=== PATIENT | female | born 1980 | race Caucasian/White ===

== ENCOUNTER 2017-09-12 18:49 | Emergency (ER) | payer OTHER, MEDICAID, SELFPAY ==
[2017-09-12 19:02] VITALS: BP 124/85; PULSE 83; RESP 20; TEMP 36.8; O2SAT 100; BMI 29.5
--- NOTE | 2017-09-12 20:06 | ED.DENTAL ---
HPI - Dental/Oral <Deepika Guadarrama PA-C - Last Filed: 09/12/17 22:13> General Chief complaint: Dental/Oral Stated complaint: POSSIBLE INFECTION IN MOUTH,NAUSIA,DIZZY Time Seen by Provider: 09/12/17 20:06 Source: patient Mode of arrival: ambulatory Limitations: no limitations History of Present Illness HPI Narrative: This generally healthy 36-year-old female complains of worsening dental pain. She states that she saw a dentist about 6 weeks ago and was told that she had an infection around her tooth. She states that a deep cleaning was planned to treat this but never scheduled. She was not started on antibiotics. On Wednesday she developed some sore throat, congestion and mild cough. She states that she has not had any fever or dyspnea and felt this was mild, but for the last 2 days she has had worsening tooth pain. She feels like pain radiates from this tooth socket up into her maxillary area and ear. She states the tooth feels loose. She has difficulty eating due to the pain. She is not having any drainage from the tooth. Again no new fever or other symptoms with this. Initially she thought might be a sinus infection due to noticing some malodorous PND but that resolved. She denies any other new complaints on systems review. States that she has miserable pain, has taken 1000 mg of ibuprofen twice today along with Tylenol. Ibuprofen helps for some time. Tylenol not helping. She has not tried topical or other pain medication. Records states allergy to codeine, but she reports that she took [place] with previous fibroid removal and no allergy or side effect Related Data Previous Rx's Medication Instructions Recorded mupirocin 2 % topical ointment 1 applictn TOP BID #22 gram 08/25/17 amoxicillin-pot clavulanate 1 tab PO Q12H #20 tab 09/12/17 [Augmentin] Allergies Allergy/AdvReac Type Severity Reaction Status Date / Time codeine [CODEINE] Allergy Unknown Verified 09/12/17 19:09 Exam <Deepika Guadarrama PA-C - Last Filed: 09/12/17 22:13> Narrative Exam Narrative: GENERAL APPEARANCE: Patient sitting comfortably, in no distress. HEAD: Localized right maxillary tenderness, none elsewhere EYES: PERRL, EOMI. EARS: Normal auditory canals, TMS intact with normal light reflexes. ORAL CAVITY: Normal oropharynx. THROAT: Right lateral incisor is discolored with erythema, tenderness and some edema around the anterior gum line. None posteriorly. No clear fluctuance. No drainage NECK/THYROID: Neck supple, full range of motion, no cervical lymphadenopathy. LUNGS: Clear to auscultation bilaterally, no cough on exam. HEART: RRR without murmur, nl S1, S2, no S3 or S4. Initial Vital Signs Initial Vital Signs: Vital Signs Temperature 98.2 F 09/12/17 19:02 Pulse Rate 83 09/12/17 19:02 Respiratory Rate 20 09/12/17 19:02 Blood Pressure 124/85 H 09/12/17 19:02 Pulse Oximetry 100 09/12/17 19:02 <Merary Rodríguez DO - Last Filed: 09/13/17 01:52> Initial Vital Signs Initial Vital Signs: Vital Signs Temperature 98.2 F 09/12/17 19:02 Pulse Rate 83 09/12/17 19:02 Respiratory Rate 20 09/12/17 19:02 Blood Pressure 124/85 H 09/12/17 19:02 Pulse Oximetry 100 09/12/17 19:02 Course <Deepika Guadarrama PA-C - Last Filed: 09/12/17 22:13> Orders Ordered: Discontinued Medications Hydrocodone Bitart/Acetaminophen (Vicodin Prepack) 1 bottle MISC SEEINSTR ONE Stop: 09/12/17 20:40 Last Admin: 09/12/17 20:51 Dose: 1 bottle Amoxicillin/Clavulanate Potassium (Augmentin 875-125 Mg) 1 tab PO NOW ONE Stop: 09/12/17 20:40 Last Admin: 09/12/17 20:51 Dose: 1 tab Vital Signs - 8 hr 09/12/17 19:02 09/12/17 21:13 Temperature 98.2 F 98.4 F Pulse Rate 83 82 Respiratory Rate 20 18 Blood Pressure 124/85 H 122/80 H Pulse Oximetry 100 100 <Merary Rodríguez DO - Last Filed: 09/13/17 01:52> Orders Ordered: Discontinued Medications Hydrocodone Bitart/Acetaminophen (Vicodin Prepack) 1 bottle MISC SEEINSTR ONE Stop: 09/12/17 20:40 Last Admin: 09/12/17 20:51 Dose: 1 bottle Amoxicillin/Clavulanate Potassium (Augmentin 875-125 Mg) 1 tab PO NOW ONE Stop: 09/12/17 20:40 Last Admin: 09/12/17 20:51 Dose: 1 tab Vital Signs - 8 hr 09/12/17 19:02 09/12/17 21:13 Temperature 98.2 F 98.4 F Pulse Rate 83 82 Respiratory Rate 20 18 Blood Pressure 124/85 H 122/80 H Pulse Oximetry 100 100 Discharge Plan Departure Patient Disposition: Home, Self-Care Clinical Impression: Infected dental caries Discharge Date/Time: 09/12/17 21:14 Interventions: ED Discharge Assessment Last Done: 09/12/17 21:13 Instructions: DI for Dental Pain Activity Restrictions/Additional Instructions: Get your antibiotic 1st thing tomorrow morning from the pharmacy and take the 2nd dose. Continue ibuprofen 800 mg every 8 hr for pain. You can use the prescription hydrocodone/acetaminophen that we gave you tonight and in the morning if needed for pain, then change back to Tylenol as needed. Call your dentist 1st thing in the morning and let them know you were seen in the ED and need to follow up in the next couple of days. It also appears that you could have a sinus infection in addition to this painful tooth on your exam today, and typically this antibiotic will help with both problems Prescriptions: New amoxicillin-pot clavulanate [Augmentin] 875-125 mg tablet 1 tab PO Q12H Qty: 20 RF: 0 No Action mupirocin 2 % ointment 1 applictn TOP BID Qty: 22 RF: 0 Referrals: [facility] [Other] Tricia Peres ARNP [Primary Care Provider] - <Merary Rodríguez DO - Last Filed: 09/13/17 01:52> Cosign ED Attending Ama[place] Attestation: I was immediately available in the department for consultation. Documentation has been reviewed. I agree with assessment and plan.
[2017-09-12] MEDS: HYDROCODONE/ACET 5/325 PREPACK 1 BOTTLE MISC (20:51)
[2017-09-12] MEDS: AMOXICILLIN/CLAV 875/125 MG 1 TAB PO (20:51)
[2017-09-12 21:13] VITALS: BP 122/80; PULSE 82; RESP 18; TEMP 36.9; O2SAT 100
--- NOTE | 2017-09-12 21:21 | PC.NURSE ---
Pt given norco pre pack. Pt asked if medication had codeine, informed pt it was hydrocodone. Pt accepted medication. Bree MEDEL also verified medication with pt.
== END 2017-09-12 21:14 | disposition home or self-care (01) ==
PROVIDERS: Emergency Provider Internal Medicine; Family Provider Internal Medicine; PCP Internal Medicine
DX: K02.9 Dental caries, unspecified (principal)
CPT/HCPCS: 99282; 99283

== ENCOUNTER 2020-08-19 20:04 | Observation (INO) | payer OTHER, MEDICAID, SELFPAY ==
[2020-08-19 20:19] VITALS: BP 121/64; PULSE 84; RESP 22; TEMP 37.1; O2SAT 98
[2020-08-20] VITALS (9 sets, daily range): BP systolic 125–129; BP diastolic 70–81; PULSE 94–97; RESP 18–20; TEMP 36.2–36.4; O2SAT 95–98; BMI 29.9
--- NOTE | 2020-08-20 00:52 | DI.CT.S_ITS ---
PROCEDURE: CT SOFT TISSUE NECK W CON INDICATIONS: abscess left side of neck TECHNIQUE: After the administration of intravenous contrast, 3.0 mm axial sections acquired from the sella to the aortic arch. Additional oblique axial 3.0 mm sections acquired through the pharynx. 3 mm thick coronal and sagittal reformats were generated. For radiation dose reduction, the following was used: automated exposure control. COMPARISON: None. FINDINGS: Image quality: Excellent. Lymph nodes: Prominent left-sided adenopathy is present including a 1.6 cm level 1 B lymph node. Vessels: Visualized vasculature appears patent. Neck spaces: The oropharynx, nasopharynx, and pharynx demonstrate no mucosal lesions. The vocal cords, false vocal cords, pyriform sinuses, epiglottis, vallecula, and tongue base all appear normal. Extramucosal spaces appear unremarkable. Glands: There is mild asymmetric prominence of the left submandibular gland. Left parotid gland demonstrates minimal periparotid stranding along the inferior tail portion. Thyroid gland is unremarkable. Miscellaneous: Visualized brain and orbits appear normal. Lung apices appear clear. There is prominent stranding within the left neck most focused inferior to the mandible. No focal fluid collection is identified. Stranding also does extend to the inferior aspect of the left parotid gland. Bones: No suspicious bony lesions. Visualized sinuses and mastoids appear unremarkable. IMPRESSION: 1. Inferior left neck subcutaneous fat stranding with adenopathy suggestive of infection or inflammation. No focal fluid collection such as abscess is clearly identified. There is asymmetric prominence of the left submandibular gland suggestive of possible siloadenitis. The above findings are concordant with preliminary report. Dictated by: Lola Us M.D. on 08/20/2020 at 10:42 Approved by: Lola Us M.D. on 08/20/2020 at 10:49
--- NOTE | 2020-08-20 00:52 | ED.DENTAL ---
HPI - Dental/Oral General Chief complaint: Dental/Oral Stated complaint: SWELLING LEFT SIDE OF FACE THROAT Time Seen by Provider: 08/20/20 00:41 Source: patient Mode of arrival: Ambulatory Limitations: no limitations History of Present Illness HPI Narrative: Patient is a 39-year-old female who had cavity filled 2 days ago since she has had increased pain and swelling of her left lower jaw. She has taken Tylenol and ibuprofen but feels like the swelling has gotten significantly worse. It hurts to swallow but she is still able to swallow. She has not had any fever or chills. Nothing like this has happened to her before. Related Data Home Medications Medication Instructions Recorded Confirmed levonorgestrel 20 mcg/24 hours (6 INTRAUTERINE 02/07/20 03/06/20 yrs) 52 mg intrauterine device Allergies Allergy/AdvReac Type Severity Reaction Status Date / Time codeine [CODEINE] Allergy Unknown Verified 03/06/20 16:28 Review of Systems Review of Systems Narrative: GENERAL: Denies chills, fatigue, malaise, fever, sweats, travel HEENT: HPI RESPIRATORY: Denies dyspnea, cough, wheezing, hemoptysis, sputum. CARDIOVASCULAR: Denies chest pain, palpitations, orthopnea, edema GASTROINTESTINAL: Denies nausea, vomiting, abdominal pain, diarrhea, constipation, melena. : Denies dysuria, frequency, incontinence, hematuria, urinary retention, flank pain. MUSCULOSKELETAL: Denies weakness, joint pain, or bony pain SKIN: No rash, no erythema, no pruritus NEUROLOGIC: Denies weakness, dizziness, headache, numbness, change in speech, confusion PSYCHIATRIC: No concerning psychosocial issues. 12 point review of systems is negative except for those stated above and HPI Patient History Medical History (Updated 08/20/20 @ 05:28 by Merary Rodríguez DO) Normal exam Return to work evaluation Surgical History (Updated 07/20/17 @ 04:58 by Tate Suresh MD) Status post myomectomy Family History (Updated 06/14/16 @ 00:00 by Conversion Provider) Grandmother Diabetes mellitus Heart disease Essential hypertension High cholesterol Social History marital status: number of children: 3 household members: significant other and children lives independently: Yes caregiver/support person: No housing: other (Manufactured mobile home.) pets and animals: Yes education level: other (Associates degree, almost completed with Bachelors.) 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.) current occupational exposures/hazards: No 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 HEENT: Head atraumatic,EOMI, pupils reactive, face symmetric, no dental abscess Cervical lymphadenopathy on the left submandibular swelling no obvious erythema CARDIOVASCULAR: Regular rate and rhythm without murmurs, rubs or gallops. RESPIRATORY: Breath sounds equal bilaterally, no wheezes rales or rhonchi. ABDOMEN: Soft, nontender. Normoactive bowel sounds all 4 quadrants. No guarding or rebound. EXTREMITIES: Normal range of motion, no clubbing or edema. Neurovascularly intact NEUROLOGICAL: Alert and oriented x4.Normal gait and speech. Cranial nerves II through XII grossly intact. SKIN: Warm, dry, no laceration, no petechiae, no rashes or lesions. Course Orders Ordered: ED Orders 08/20/20 00:52 CT soft tissue neck w con Stat 08/20/20 00:55 Complete Blood Count AUTO DIFF Stat Comprehensive Metabolic Panel Stat Lactate (Lactic Acid) Stat Test Serum,Qual Stat Procalcitonin Stat 08/20/20 01:16 Blood Culture Stat 08/20/20 02:00 COVID19 - ADMIT ([employer] swab/PCR) Stat Acetaminophen (Acetaminophen 325 Mg Tablet) 650 mg PO Q6HR PRN PRN Reason: Fever/Mild Pain (1-3) Dexamethasone (Dexamethasone 10 Mg/Ml Vial) 10 mg IV BID COBY Enoxaparin Sodium (Enoxaparin 40 Mg/0.4 Ml Syringe) 40 mg SUBCUT DAILY COBY Sodium Chloride (Normal Saline 0.9%) 1,000 mls @ 100 mls/hr IV CONT COBY Last Admin: 08/20/20 04:19 Dose: 100 mls/hr Documented by: SHO Ampicillin Sodium/Sulbactam (Sodium 3 gm/ Sodium Chloride) 100 mls @ 100 mls/hr IV Q6H [facility] Ketorolac Tromethamine (Ketorolac 30 Mg/Ml Vial) 30 mg IV Q6HR PRN PRN Reason: Pain, Severe (7-10) Stop: 08/25/20 03:52 Naloxone HCl (Naloxone 0.4 Mg/Ml Vial) 0.2 mg IV Q2MIN PRN PRN Reason: Opiate Reversal Ondansetron HCl (Ondansetron 4 Mg/2 Ml Inj) 4 mg IV Q8HR PRN PRN Reason: Nausea And Vomiting Discontinued Medications Ampicillin Sodium/Sulbactam (Sodium 3 gm/ Sodium Chloride) 100 mls @ 100 mls/hr IV NOW ONE Stop: 08/20/20 00:53 Last Infusion: 08/20/20 02:38 Dose: 0 mls/hr Documented by: Admin: 08/20/20 01:33 Dose: 100 mls/hr Documented by: JANELL Dexamethasone 20 mg/ Sodium (Chloride) 52 mls @ 208 mls/hr IV NOW ONE Stop: 08/20/20 00:53 Last Infusion: 08/20/20 01:33 Dose: 0 mls/hr Documented by: Admin: 08/20/20 01:16 Dose: 208 mls/hr Documented by: JANELL Sodium Chloride (Normal Saline 0.9%) 1,000 mls @ 1,000 mls/hr IV BOLUS ONE Stop: 08/20/20 01:51 Last Infusion: 08/20/20 03:00 Dose: 0 mls/hr Documented by: Admin: 08/20/20 01:17 Dose: 1,000 mls/hr Documented by: JANELL Ampicillin Sodium/Sulbactam (Sodium 3 gm/ Sodium Chloride) 100 mls @ 100 mls/hr IV Q6H [facility] Last Admin: 08/20/20 04:37 Dose: Not Given Documented by: SHO Ketorolac Tromethamine (Ketorolac 30 Mg/Ml Vial) 30 mg IV NOW ONE Stop: 08/20/20 00:53 Last Admin: 08/20/20 01:17 Dose: 30 mg Documented by: JANELL Vital Signs Vital signs: Vital Signs - 8 hr 08/19/20 20:19 Temperature 98.8 F Pulse Rate 84 Respiratory Rate 22 Blood Pressure 121/64 Pulse Oximetry 98 MDM - Dental/Oral Lab Data Attestation: I reviewed the patient's lab results. Result diagrams: 08/20/20 00:55 08/20/20 00:55 Labs: Lab Results 08/20/20 08/20/20 08/20/20 Range/Units 00:55 00:55 00:55 WBC 12.3 H (4.5-11.0) X10^3/uL RBC 4.45 (4.0-5.2) X10^6/uL Hgb 13.5 (12.0-16.0) g/dL Hct 38.9 (36-46) % MCV 87.4 (80-100) fL MCH 30.3 (26-34) PG MCHC 34.7 (30-36) % RDW 13.2 (11.6-14.8) % Plt Count 260 (150-400) X10^3/uL Neut % (Auto) 78.5 H (50-75) % Lymph % (Auto) 13.3 L (25-40) % [place]entry % (Auto) 6.6 (3-14) % Eos % (Auto) 0.9 L (2-4) % Baso % (Auto) 0.7 (0-2) % Neut # (Auto) 9700 H (2427-8252) /uL Lymph # (Auto) 1600 (2227-7315) /uL [place]entry # (Auto) 800 (0-900) /uL Eos # (Auto) 100 (0-450) /uL Baso # (Auto) 100 (0-100) /uL Sodium 140 (137-145) mmol/L Potassium 3.6 (3.4-5.1) mmol/L Chloride 107 (98-107) mmol/L Carbon Dioxide 24 (22-32) mmol/L BUN 6 L (7-17) mg/dL Creatinine 0.65 (0.52-1.04) mg/dL Estimated GFR > 60.0 (>60) mL/min BUN/Creatinine Ratio 9.2 (6-22) Glucose 96 (70-100) mg/dL Lactate 0.6 L (0.7-2.1) mmol/L Calcium 9.2 (8.4-10.2) mg/dL Total Bilirubin 0.9 (0.2-1.3) mg/dL AST 35 (14-36) IU/L ALT 34 (<35) IU/L Alkaline Phosphatase 80 (38-126) U/L Total Protein 8.0 (6.3-8.2) g/dL Albumin 4.3 (3.5-5.0) g/dL Globulin 3.7 (1.7-4.1) g/dL Albumin/Globulin Ratio 1.2 (1.0-2.8) Procalcitonin 0.12 (<0.5) ng/mL Serum , Qual (Negative) SARS-CoV-2 (PCR) (Negative) 08/20/20 08/20/20 Range/Units 00:55 02:00 WBC (4.5-11.0) X10^3/uL RBC (4.0-5.2) X10^6/uL Hgb (12.0-16.0) g/dL Hct (36-46) % MCV (80-100) fL MCH (26-34) PG MCHC (30-36) % RDW (11.6-14.8) % Plt Count (150-400) X10^3/uL Neut % (Auto) (50-75) % Lymph % (Auto) (25-40) % Gentry % (Auto) (3-14) % Eos % (Auto) (2-4) % Baso % (Auto) (0-2) % Neut # (Auto) (2476-0690) /uL Lymph # (Auto) (7654-5367) /uL Gentry # (Auto) (0-900) /uL Eos # (Auto) (0-450) /uL Baso # (Auto) (0-100) /uL Sodium (137-145) mmol/L Potassium (3.4-5.1) mmol/L Chloride (98-107) mmol/L Carbon Dioxide (22-32) mmol/L BUN (7-17) mg/dL Creatinine (0.52-1.04) mg/dL Estimated GFR (>60) mL/min BUN/Creatinine Ratio (6-22) Glucose (70-100) mg/dL Lactate (0.7-2.1) mmol/L Calcium (8.4-10.2) mg/dL Total Bilirubin (0.2-1.3) mg/dL AST (14-36) IU/L ALT (<35) IU/L Alkaline Phosphatase (38-126) U/L Total Protein (6.3-8.2) g/dL Albumin (3.5-5.0) g/dL Globulin (1.7-4.1) g/dL Albumin/Globulin Ratio (1.0-2.8) Procalcitonin (<0.5) ng/mL Serum , Qual Negative (Negative) SARS-CoV-2 (PCR) Negative (Negative) Imaging Data CT soft tissue neck: Radiologist's Impression: Preliminary report: Asymmetrically enlarged left submandibular gland then compared to right with surrounding edema and stranding. No inflammatory change is greatest involving the inferior margin/tail of left parotid gland with edema and thickening of the left platysma. Favor left submandibular gland silloadenitis without obstructing sialolithiasis. No definitive fluid collection. The edema and thickening of the left platysma musculature raising concern for possible coexisting cellulitis. Likely reactive lymph nodes adjacent to the left submandibular gland is outlined above with largest within the left submental region measuring up to 1.5 cm. [facility] Narrative Medical decision making narrative: Patient has significant swelling of left submandibular region. Concern for abscess, Lukasz's angina and deep neck in infection. She has mild leukocytosis as well. CT does not actually show fluid collection but does show sialoadenitis however other is concerning with thickened left platysma for coexisting infection. Patient does feel little bit better after dexamethasone and Unasyn. However still concern for deep neck soft tissue infection with significant submandibular swelling. Recommend patient be monitored for airway protection along with IV antibiotics and IV steroids. 0330-Dr. Singh ENT updated patient's symptoms test results agrees with admission to the hospitalist and recommends calling Dr. Alamo at 8:00 a.m. for official consultation. Alec MCKEON updated patient's symptoms test results and accepts patient to observation Discharge Plan Departure Patient Disposition: Admitted as Observation Clinical Impression: Neck infection, Acute sialoadenitis Admit Date/Time: 08/20/20 03:39 Admit Provider: Candelaria Michael
[2020-08-20 01:09] LABS: Add Manual Diff / Slide Review NO; Basophils Absolute Auto 100 /uL (0-100); Basophils Percent Auto 0.7 % (0-2); Eosinophils Absolute Auto 100 /uL (0-450); Eosinophils Percent Auto 0.9 % (2-4); Hematocrit 38.9 % (36-46); Hemoglobin 13.5 g/dL (12.0-16.0); Lymphocytes Absolute Auto 1600 /uL (1100-4500); Lymphocytes Percent Auto 13.3 % (25-40); Mean Corpuscular HGB Conc 34.7 % (30-36); Mean Corpuscular Hemoglobin 30.3 PG (26-34); Mean Corpuscular Volume 87.4 fL (80-100); Monocytes Absolute Auto 800 /uL (0-900); Monocytes Percent Auto 6.6 % (3-14); Neutrophils Absolute Auto 9700 /uL (1500-7000); Neutrophils Percent Auto 78.5 % (50-75); Platelet Count 260 X10^3/uL (150-400); Red Blood Cell Count 4.45 X10^6/uL (4.0-5.2); Red Cell Distribution Width 13.2 % (11.6-14.8); White Blood Cell Count 12.3 X10^3/uL (4.5-11.0)
[2020-08-20 01:14] LABS: Alanine Aminotransferase 34 IU/L (<35); Albumin 4.3 g/dL (3.5-5.0); Albumin Globulin Ratio 1.2 (1.0-2.8); Alkaline Phosphatase 80 U/L (38-126); Aspartate Aminotransferase 35 IU/L (14-36); BUN Creatinine Ratio 9.2 (6-22); Bilirubin Total 0.9 mg/dL (0.2-1.3); Blood Urea Nitrogen 6 mg/dL (7-17); Calcium 9.2 mg/dL (8.4-10.2); Carbon Dioxide 24 mmol/L (22-32); Chloride 107 mmol/L (98-107); Estimated Glomerular Filt Rate > 60.0 mL/min (>60); Globulin 3.7 g/dL (1.7-4.1); Glucose 96 mg/dL (70-100); HEMOLYSIS 33 (0-50); Potassium 3.6 mmol/L (3.4-5.1); Sodium 140 mmol/L (137-145)
[2020-08-20 01:15] LABS: Lactate (Lactic Acid) 0.6 mmol/L (0.7-2.1)
[2020-08-20] MEDS: dexAMETHasone 20 MG in SODIUM CHLORIDE 0.9% 50 ML 208 ML IV (01:16)
[2020-08-20] MEDS: SODIUM CHLORIDE 0.9% 1,000 ML 1000 ML IV (01:17)
[2020-08-20] MEDS: KETOROLAC 30 MG/ML VIAL IV ×2 (01:17→08:26)
[2020-08-20 01:19] LABS: Pregnancy Test Serum,Qual Negative (Negative)
[2020-08-20 01:30] LABS: Procalcitonin 0.12 ng/mL (<0.5)
[2020-08-20] MEDS: AMPICILLIN/SULBACTAM 3 GM 3 GM in SODIUM CHLORIDE 0.9% 100 ML IV ×3 (01:33→12:49)
[2020-08-20 02:57] LABS: COVID19 - ADMIT (NP swab/PCR) Negative (Negative)
[2020-08-20] MEDS: SODIUM CHLORIDE 0.9% 1,000 ML 100 ML IV (04:19)
--- NOTE | 2020-08-20 05:08 | PC.ADMIT ---
0400 patient admitted to room 210 per wheelchair from ER. Had dental filling done couple days prior and developed swelling in left neck/jaw and uncontrolled pain. Is alert and oriented. Breath sounds CTA with RA sat of 97%; denies SOB. HRR. Denies nausea. BT present and abdomen is soft. Denies dysuria, frequency or urgency. Swelling noted in left jaw/neck and patient states is tender to touch. Rates pain severity as 3/10 with swallowing but states pain is tolerable; describes as burning pain. Independent with mobility and denies any dizziness/lightheadedness and is steady on feet; no falls reported. Bilateral calf SCD's applied. Fall risk score is low. Oriented to bed controls and call light. [email or web address] Admission Note: The patient,Georgia Meyers,39 y/o, was given written information regarding hospital policies, unit procedures and contact persons. Patient's smoking status: Never smoker. Vital Signs - 8 hr 08/20/20 03:49 08/20/20 03:50 08/20/20 04:08 Temperature 97.2 F L Pulse Rate 94 H 97 H Respiratory Rate 18 18 Blood Pressure 129/70 129/81 Pulse Oximetry 97 98 97
[2020-08-20 06:25] LABS: Add Manual Diff / Slide Review NO; Basophils Absolute Auto 100 /uL (0-100); Basophils Percent Auto 0.5 % (0-2); Eosinophils Absolute Auto 0 /uL (0-450); Eosinophils Percent Auto 0.1 % (2-4); Hematocrit 37.9 % (36-46); Hemoglobin 12.5 g/dL (12.0-16.0); Lymphocytes Absolute Auto 800 /uL (1100-4500); Lymphocytes Percent Auto 6.5 % (25-40); Mean Corpuscular Hemoglobin 28.7 PG (26-34); Mean Corpuscular Volume 86.8 fL (80-100); Monocytes Absolute Auto 200 /uL (0-900); Neutrophils Absolute Auto 10700 /uL (1500-7000); Neutrophils Percent Auto 90.9 % (50-75); Platelet Count 244 X10^3/uL (150-400); Red Blood Cell Count 4.36 X10^6/uL (4.0-5.2); White Blood Cell Count 11.8 X10^3/uL (4.5-11.0)
--- NOTE | 2020-08-20 06:31 | PM.HP.1 ---
History of Present Illness History of Present Illness Date Patient Seen: 08/20/20 Time Patient Seen: 06:31 Chief complaint: SWELLING LEFT SIDE OF FACE THROAT Narrative: Patient is a 39-year-old female Georgia Meyers who had cavity filled 4 days ago since that time she has had increased pain and swelling of her left lower jaw. She has taken Tylenol and ibuprofen regularly but feels like the swelling and pain has gotten significantly worse. It hurts to swallow but she is still able to swallow, she denies difficulty breathing. She has been unable to eat solid food since Wednesday. She has not had any fever, chills, nausea, or vomiting. Nothing like this has happened to her before. She has no history stones or blockage. She denies chronic joint pain, dry eyes or mouth, weight loss, foul-smelling breath, changes to saliva secretions or any drainage. Patient has had no recent exposure to contrast dye or new medication prior to tonight. Patient is a healthy 39-year-old female with no other significant medical history, surgeries or medications. Upon admit patient's vital signs were stable, patient's labs were unremarkable with the exceptions of elevated white count 12.3, nuet#900, and lactate 0.6. Patient has significant swelling of left submandibular region. She has mild leukocytosis as well. CT does not actually show fluid collection but does show sialoadenitis however other is concerning with thickened left platysma for coexisting infection. Patient be admitted for Acute Left Sialadenitis to monitor for airway protection along with IV antibiotics and IV steroids. ED Consult-Dr. Singh ENT agrees with admission to the hospitalist and recommends calling Dr. Alamo at 8:00 a.m. for official consultation. Patient History Medical History Normal exam Return to work evaluation Surgical History Status post myomectomy Family & Social History Family History Grandmother Diabetes mellitus Heart disease Essential hypertension High cholesterol Social History: household members significant other,children Prior Living Arrangements Mobile home lives independently Yes caregiver/support person No Safety & Behavioral: Feels Safe in Current Yes Environment Been Physically Hurt or No Threatened By a Person Suicidal Ideation Description None Suicide Plan Description No Plan Tobacco & Substance use: Smoking Status Never smoker alcohol intake never Substance Use Type does not use Meds Home Medications and Allergies Home Medications Medication Instructions Recorded Confirmed Type levonorgestrel 20 mcg/24 hours (6 INTRAUTERINE 02/07/20 03/06/20 History yrs) 52 mg intrauterine device Allergies Allergy/AdvReac Type Severity Reaction Status Date / Time codeine [CODEINE] Allergy Unknown Verified 03/06/20 16:28 Review of Systems Review of Systems ROS: Yes All systems reviewed with the patient and are negative except as otherwise documented ENT Ears, Nose, Mouth, and Throat: Yes facial pain, Yes mouth pain and Yes odynophagia Comments: neck swelling Gastrointestinal Gastrointestinal: Reports odynophagia Exam Vital Signs (past 8 hours): - 08/20/20 03:49 08/20/20 03:50 08/20/20 04:08 Temperature 97.2 F L Pulse Rate 94 H 97 H Respiratory Rate 18 18 Blood Pressure 129/70 129/81 Pulse Oximetry 97 98 97 Oxygen Delivery Method Room Air Oxygen Flow Rate 0 Narrative Exam Narrative: General: Patient is a well-developed, well-nourished in no distress at this time. HEENT: Normocephalic, atraumatic, extraocular muscles intact, oral pharynx is clear and mucous membranes are moist. Neck: Noted moderate left submandibular inflammation without erythema. Negative for JVD Chest: Normal AP diameter and contour without kyphoscoliosis, no nasal flaring, retractions, or tachypneic labored Lungs: Auscultation of all lung alba are clear without adventitious sounds, wheezes, rhonchi, or rales. Cardio: S1 & S2 with regular rate and rhythm without murmur, rubs, or gallops, no carotid bruit, no cardiac pulsations present. Abdomen: Soft nontender, negative for organomegaly, or masses. Bowel sounds are present in all 4 quadrants without guarding or rebound, no CVA tenderness. Musculoskeletal: Muscle strength and tone are equal within normal limits, no deformity, crepitus, effusions, cyanosis, clubbing or edema present. Full range of motion intact radial and pedal pulses are normal. Skin: Warm dry and intact without rashes, ulcerations or petechiae. Neuro: Alert and orientated x3, strength is +5/5 in all extremities, sensation to touch intact, no gross deficits noted of cranial nerves. Psych: Patient has a well-kept appearance, appropriate affect, mental status attitude thought context and judgment are appropriate for age. Objective Labs Result Diagrams: 08/20/20 00:55 08/20/20 00:55 Labs: Laboratory Results - last 24 hr 08/20/20 08/20/20 08/20/20 00:55 00:55 00:55 WBC 12.3 H RBC 4.45 Hgb 13.5 Hct 38.9 MCV 87.4 MCH 30.3 MCHC 34.7 RDW 13.2 Plt Count 260 Neut % (Auto) 78.5 H Lymph % (Auto) 13.3 L [place] % (Auto) 6.6 Eos % (Auto) 0.9 L Baso % (Auto) 0.7 Neut # (Auto) 9700 H Lymph # (Auto) 1600 [place] # (Auto) 800 Eos # (Auto) 100 Baso # (Auto) 100 Sodium 140 Potassium 3.6 Chloride 107 Carbon Dioxide 24 BUN 6 L Creatinine 0.65 Estimated GFR > 60.0 BUN/Creatinine Ratio 9.2 Glucose 96 Lactate 0.6 L Calcium 9.2 Total Bilirubin 0.9 AST 35 ALT 34 Alkaline Phosphatase 80 Total Protein 8.0 Albumin 4.3 Globulin 3.7 Albumin/Globulin Ratio 1.2 Procalcitonin 0.12 Serum , Qual SARS-CoV-2 (PCR) 08/20/20 08/20/20 00:55 02:00 WBC RBC Hgb Hct MCV MCH MCHC RDW Plt Count Neut % (Auto) Lymph % (Auto) [place] % (Auto) Eos % (Auto) Baso % (Auto) Neut # (Auto) Lymph # (Auto) [place] # (Auto) Eos # (Auto) Baso # (Auto) Sodium Potassium Chloride Carbon Dioxide BUN Creatinine Estimated GFR BUN/Creatinine Ratio Glucose Lactate Calcium Total Bilirubin AST ALT Alkaline Phosphatase Total Protein Albumin Globulin Albumin/Globulin Ratio Procalcitonin Serum , Qual Negative SARS-CoV-2 (PCR) Negative Assessment & Plan Assessment & Plan narrative: 1.Acute Sialadenitis Left (submandibular gland), acute, present on admission Upon admit patient's vital signs were stable, patient's labs were unremarkable with the exception white count 12.3, nuet#900, and lactate 0.6. Patient has significant swelling of left submandibular region. She has mild leukocytosis as well. CT does not actually show fluid collection but does show sialoadenitis however other is concerning with thickened left platysma for coexisting infection. Most likely secondary bacterial infection to dental procedure. -Neck CT:Asymmetrically enlarged left submandibular gland then compared to right with surrounding edema and stranding. No inflammatory change is greatest involving the inferior margin/tail of left parotid gland with edema and thickening of the left platysma. Favor left submandibular gland silloadenitis without obstructing sialolithiasis. No definitive fluid collection. The edema and thickening of the left platysma musculature raising concern for possible coexisting cellulitis. Likely reactive lymph nodes adjacent to the left submandibular gland is outlined above with largest within the left submental region measuring up to 1.5 cm. -Rule out: abscess, Lukasz's angina and deep neck in infection. Monitor airway ED Consult-Dr. Singh ENT agrees with admission to the hospitalist and recommends calling Dr. Alamo at 8:00 a.m. for official consultation. -Consult from Dr. Alamo today. -Unasyn 3 g q.6 hours and dexamethasone 10 mg b.i.d. -vital signs q.4 hours, intake and output monitored Q shift, weight measure daily, diet:clear liquids, IV NS 100cc/hr -warm compresses to area, sucking on hard candies to promote drainage. Code status: Full code Surrogate decision maker: Phyllis Quinonez-best friend COVID PCR: Negative VTE/DVT prophylaxis: Lovenox 40 mg and SCDs Scores GCS Niko coma scale eye opening: Spontaneous [place] coma scale verbal response: Orientated [place] coma scale motor response: Obey commands Niko coma scale total score: 15 SOFA PaO2/FIO2: >=400 mmHg Platelets: >= 150 Bilirubin: < 1.2 mg/dL Hypotension: MAP >= 70 mmHg [place] Coma Scale: 15 Renal: < 1.2 mg/dL SOFA Score: 0 Quality VTE Deep Vein Thrombosis/Pulmonary Embolism Present on Admission: No
[2020-08-20] MEDS: ENOXAPARIN 40 MG/0.4 ML SYRINGE SUBCUT (08:26)
[2020-08-20] MEDS: DEXAMETHASONE 10 MG/ML VIAL IV (08:26)
--- NOTE | 2020-08-20 14:25 | PC.NURSE ---
Discharge education given to pt, discussed- medications, worsening symptoms, f/u appts, s/s of stroke, and reasons to seek medical attention. All questions answered. IV removed. Pt dressed and packed independently. To call when her laundry route driver arrives, to be escorted via w/c.
--- NOTE | 2020-08-20 15:44 | CM.DANOTE ---
DCP ASSESSMENT: Patient is a 39 year-old female admitted to the hospital for swelling of left side of face and throat. PCP unknown. Primary payer is [place] and [employer]. PT ESC[employer] Student met with patient at bedside she was alert and oriented. Educated patient on role of social work and discharge planning. She lives with significant other and two children 5 and 16 years-old. She is independent with all ADL?s. Patient anticipates D/C home when medically stable with friend Phyllis Quinonez to provide transportation. PLAN: Anticipate D/C when medically stable. CM Team to continue to follow. QUIRINO Carvalho MSW Student Discharge Planning/Care Management CM Discharge Assessment Start: 08/20/20 09:59 Freq: Status: Discharge Protocol: Document 08/20/20 09:59 AL (Rec: 08/20/20 10:02 AL [id number]) Discharge Planning Assessment Assigned Forestry Professor QUIRINO Doyle Contact Information Phyllis Quinonez, Friend Advance Directives? No History Provided By Patient,Medical Record Has Patient been admitted in last 30 No days? Prior Living Arrangements Mobile home Household Members significant other,children Type of transporation used prior to Drives own vehicle admit Independent with ADL's Yes Is patient alert and oriented? Yes Caregiver for Another Yes: Children 5 & 16 years-old Barriers to Discharge No Discharge Plan Home Transportation Arrangement Patients friend Phyllis Quinonez to provide transportation Whiteboard Updated in Patient Room with Yes name and ext. # of Forestry Professor Review Status In Process
--- NOTE | 2020-08-20 17:18 | P.CONS_ITS ---
History of Present Illness Consult details Date Patient Seen: 08/20/20 Time Patient Seen: 07:00 Chief complaint: SWELLING LEFT SIDE OF FACE THROAT Reason for consult: Left neck swelling Requesting provider: Nestor Joseph Narrative: 39-year-old female without similar prior problems underwent dental work 5 days ago of the left posterior mandibular molar. Progressive pain and swelling developed bleeding to presentation to the emergency room. CT neck report indicates no evidence of abscess but significant soft tissue swelling, possible cellulitis. No visible stone. Consultation requested to determine further medical and/or surgical management. No significant throat pain although there is trismus. No voice changes or airway obstruction, no other ENT complaints. Meds Home Medications and Allergies Home Medications Medication Instructions Recorded Confirmed Type levonorgestrel 20 mcg/24 hours (6 See Rx Instructions .ROUTE .COMPLEX 02/07/20 08/20/20 History yrs) 52 mg intrauterine device amoxicillin-pot clavulanate 1 tab PO BID #20 tab 08/20/20 Rx [Augmentin] prednisone 40 mg PO DAILY #6 tab 08/20/20 Rx Allergies Allergy/AdvReac Type Severity Reaction Status Date / Time codeine [CODEINE] Allergy Unknown Verified 03/06/20 16:28 Review of Systems Review of Systems ROS: Yes All systems reviewed with the patient and are negative except as otherwise documented Exam Vital Signs (past 8 hours): - 08/20/20 11:48 08/20/20 12:50 08/20/20 13:08 Temperature 97.5 F L Pulse Rate 97 H Respiratory Rate 18 Blood Pressure 125/77 Pulse Oximetry 97 95 95 Oxygen Delivery Method Room Air Oxygen Flow Rate 0 Narrative Exam Narrative: Well-developed well-nourished female in no acute distress. Obvious left submandibular neck swelling with mild to moderate tenderness but no skin erythema. Left floor of mouth with clear saliva from the submandibular duct, no obvious visible abscess, either odontogenic or other. Otherwise healthy mucosa. Moderate trismus. Objective Labs Result Diagrams: 08/20/20 06:06 08/20/20 00:55 Labs: Laboratory Results - last 24 hr 08/20/20 08/20/20 08/20/20 00:55 00:55 00:55 WBC 12.3 H RBC 4.45 Hgb 13.5 Hct 38.9 MCV 87.4 MCH 30.3 MCHC 34.7 RDW 13.2 Plt Count 260 Neut % (Auto) 78.5 H Lymph % (Auto) 13.3 L [place] % (Auto) 6.6 Eos % (Auto) 0.9 L Baso % (Auto) 0.7 Neut # (Auto) 9700 H Lymph # (Auto) 1600 [place] # (Auto) 800 Eos # (Auto) 100 Baso # (Auto) 100 Sodium 140 Potassium 3.6 Chloride 107 Carbon Dioxide 24 BUN 6 L Creatinine 0.65 Estimated GFR > 60.0 BUN/Creatinine Ratio 9.2 Glucose 96 Lactate 0.6 L Calcium 9.2 Total Bilirubin 0.9 AST 35 ALT 34 Alkaline Phosphatase 80 Total Protein 8.0 Albumin 4.3 Globulin 3.7 Albumin/Globulin Ratio 1.2 Procalcitonin 0.12 Serum , Qual SARS-CoV-2 (PCR) 08/20/20 08/20/20 08/20/20 00:55 02:00 06:06 WBC 11.8 H RBC 4.36 Hgb 12.5 Hct 37.9 MCV 86.8 MCH 28.7 MCHC 33.0 RDW 13.0 Plt Count 244 Neut % (Auto) 90.9 H Lymph % (Auto) 6.5 L [place] % (Auto) 2.0 L Eos % (Auto) 0.1 L Baso % (Auto) 0.5 Neut # (Auto) 14141 H Lymph # (Auto) 800 L [place] # (Auto) 200 Eos # (Auto) 0 Baso # (Auto) 100 Sodium Potassium Chloride Carbon Dioxide BUN Creatinine Estimated GFR BUN/Creatinine Ratio Glucose Lactate Calcium Total Bilirubin AST ALT Alkaline Phosphatase Total Protein Albumin Globulin Albumin/Globulin Ratio Procalcitonin Serum , Qual Negative SARS-CoV-2 (PCR) Negative Assessment & Plan Assessment & Plan narrative: Left submandibular deep neck bacterial infection but no abscess. Consistent with odontogenic source. 2. Trismus Plan: As discussed with the patient and hospitalist Service, I recommend co ntinued antibiotic and steroid coverage, if definitely improving may be discharged at their discretion on oral steroids and oral antibiotics, follow-up with dentist, call in the interim with any worsening. I expect her to improve without surgical intervention based on her improvement over the 1st 12 hours.
--- NOTE | 2020-08-20 18:34 | P.DS_ITS ---
History of Present Illness History of Present Illness Chief complaint: SWELLING LEFT SIDE OF FACE THROAT Narrative: Patient is a 39-year-old female [place] Meyers who had cavity filled 4 days ago since that time she has had increased pain and swelling of her left lower jaw. She has taken Tylenol and ibuprofen regularly but feels like the swelling and pain has gotten significantly worse. It hurts to swallow but she is still able to swallow, she denies difficulty breathing. She has been unable to eat solid food since Wednesday. She has not had any fever, chills, nausea, or vomiting. Nothing like this has happened to her before. She has no history stones or blockage. She denies chronic joint pain, dry eyes or mouth, weight loss, foul-smelling breath, changes to saliva secretions or any drainage. Asia romero has had no recent exposure to contrast dye or new medication prior to [facility]. Patient is a healthy 39-year-old female with no other significant medical history, surgeries or medications. Upon admit patient's vital signs were stable, patient's labs were unremarkable with the exceptions of elevated white count 12.3, nuet#900, and lactate 0.6. Patient has significant swelling of left submandibular region. She has mild leukocytosis as well. CT does not actually show fluid collection but does show sialoadenitis however other is concerning with thickened left platysma for coexisting infection. Patient be admitted for Acute Left Sialadenitis to monitor for airway protection along with IV antibiotics and IV steroids. ED Consult-Dr. Singh ENT agrees with admission to the hospitalist and recommends calling Dr. Alamo at 8:00 a.m. for official consultation. Discharge Providers Provider Date of admission: 08/20/20 03:39 Discharge Date: 08/20/20 Discharge provider: Nestor Joseph MD Summary Hospital Course Discharge Diagnosis: 1. Acute left submandibular infective sialoadenitis 2. Trismus Patient was started on IV Unasyn and dexamethasone. Dr. Alamo saw her for ENT and noted findings consistent with left submandibular deep neck bacterial infection but no abscess. He felt this was consistent with odontogenic source after recent dental work. Patient had marked symptom improvement with IV therapy overnight and able to open mouth much better and have less pain. She is discharged on oral Augmentin and a few more days with prednisone. She will follow-up with her dentist. Status at Discharge Cognitive/behavioral status at discharge: oriented Functional status at discharge: independent ambulation Overall status at discharge: patient is progressing back to baseline Time Spent with Patient Time spent: Less than 30 minutes Exam Vital Signs (past 8 hours): - 08/20/20 11:48 08/20/20 12:50 08/20/20 13:08 Temperature 97.5 F L Pulse Rate 97 H Respiratory Rate 18 Blood Pressure 125/77 Pulse Oximetry 97 95 95 Oxygen Delivery Method Room Air Oxygen Flow Rate 0 Objective Labs Result Diagrams: 08/20/20 06:06 08/20/20 00:55 Labs: Laboratory Results - last 24 hr 08/20/20 08/20/20 08/20/20 00:55 00:55 00:55 WBC 12.3 H RBC 4.45 Hgb 13.5 Hct 38.9 MCV 87.4 MCH 30.3 MCHC 34.7 RDW 13.2 Plt Count 260 Neut % (Auto) 78.5 H Lymph % (Auto) 13.3 L [place] % (Auto) 6.6 Eos % (Auto) 0.9 L Baso % (Auto) 0.7 Neut # (Auto) 9700 H Lymph # (Auto) 1600 [place] # (Auto) 800 Eos # (Auto) 100 Baso # (Auto) 100 Sodium 140 Potassium 3.6 Chloride 107 Carbon Dioxide 24 BUN 6 L Creatinine 0.65 Estimated GFR > 60.0 BUN/Creatinine Ratio 9.2 Glucose 96 Lactate 0.6 L Calcium 9.2 Total Bilirubin 0.9 AST 35 ALT 34 Alkaline Phosphatase 80 Total Protein 8.0 Albumin 4.3 Globulin 3.7 Albumin/Globulin Ratio 1.2 Procalcitonin 0.12 Serum , Qual SARS-CoV-2 (PCR) 08/20/20 08/20/20 08/20/20 00:55 02:00 06:06 WBC 11.8 H RBC 4.36 Hgb 12.5 Hct 37.9 MCV 86.8 MCH 28.7 MCHC 33.0 RDW 13.0 Plt Count 244 Neut % (Auto) 90.9 H Lymph % (Auto) 6.5 L [place] % (Auto) 2.0 L Eos % (Auto) 0.1 L Baso % (Auto) 0.5 Neut # (Auto) 16567 H Lymph # (Auto) 800 L [place] # (Auto) 200 Eos # (Auto) 0 Baso # (Auto) 100 Sodium Potassium Chloride Carbon Dioxide BUN Creatinine Estimated GFR BUN/Creatinine Ratio Glucose Lactate Calcium Total Bilirubin AST ALT Alkaline Phosphatase Total Protein Albumin Globulin Albumin/Globulin Ratio Procalcitonin Serum , Qual Negative SARS-CoV-2 (PCR) Negative PFSH Medical History Normal exam Return to work evaluation Surgical History Status post myomectomy Family History Grandmother Diabetes mellitus Heart disease Essential hypertension High cholesterol Social History marital status: number of children: 3 household members: significant other and children lives independently: Yes caregiver/support person: No housing: other (Manufactured mobile home.) pets and animals: Yes education level: other (Associates degree, almost completed with Bachelors.) 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.) current occupational exposures/hazards: No 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 special hortencia needs: No Smoking Status: Never smoker Tobacco: How many years used: 0 second hand exposure: No alcohol intake: never substance use type: does not use Discharge Plan Discharge Plan Patient Disposition: Home Discharge orders & Medications Prescriptions: New amoxicillin-pot clavulanate [Augmentin] 875-125 mg tablet 1 tab PO BID Qty: 20 RF: 0 prednisone 20 mg tablet 40 mg PO DAILY Qty: 6 RF: 0 Continued Mirena 20 mcg/24 hours (5 yrs) 52 mg intrauterine device See Rx Instructions .ROUTE .COMPLEX RF: 0 Discharge Health Status Multidrug resistant organism: No MDRO Diet/Activity/Treatments Diet: Diet as Tolerated Visit Report/Discharge Packet Instructions: Prednisone, Amoxicillin and Clavulanic Acid Stand Alone Forms: Work/Release Restrictions Discharge Data Attending Provider: Candelaria Michael VTE Deep Vein Thrombosis/Pulmonary Embolism Present on Admission: No
== END 2020-08-20 14:52 | disposition home or self-care (01) ==
LOC: ED 08-20 00:41 → AC 08-20 03:40
PROVIDERS: Admitting Provider Nurse Practitioner Family; Emergency Provider Emergency Medicine; Family Provider Internal Medicine; Visit Provider Nurse Practitioner Family
DX: K11.21 Acute sialoadenitis (principal); R25.2 Cramp and spasm; Z20.822 Contact with and (suspected) exposure to COVID-19
CPT/HCPCS: 36415; 70491; 80053; 83605; 84145; 84703; 85025; 87040; 87635; 94760; 96365; 96366; 96367; 96372; 96375; 96376; 99284; C9803; G0378; J0295; J1100; J1650; J1885; Q9967

== ENCOUNTER 2021-05-15 12:12 | Emergency (ER) | payer OTHER, MEDICAID, SELFPAY ==
[2020-08-20 03:53] VITALS: BMI 29.9
[2021-05-15] VITALS (7 sets, daily range): BP systolic 122; BP diastolic 70; PULSE 83–127; RESP 15–16; TEMP 36.8–39.5; O2SAT 99–100; BMI 27.4
[2021-05-15] MEDS: IBUPROFEN 400 MG TABLET 800 MG PO (12:37)
[2021-05-15] MEDS: ACETAMINOPHEN 325 MG TABLET 975 MG PO (14:15)
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
[2021-05-15] MEDS: PENICILLIN G BENZATHINE 1,200,000 UNIT/2 ML SYRINGE 1200000 UNIT IM (16:28)
== END 2021-05-15 16:48 | disposition home or self-care (01) ==
PROVIDERS: Emergency Provider Emergency Medicine; Family Provider Internal Medicine
DX: J02.0 Streptococcal pharyngitis (principal)
CPT/HCPCS: 87880; 96372; 99283; J0561

== ENCOUNTER → 2021-08-06 09:33 | Outpatient (CLI) | payer OTHER, MEDICAID, SELFPAY ==
[2020-08-20 03:53] VITALS: BMI 29.9
[2021-08-06 10:39] LABS: Influenza A - CEPHEID Flu A NEGATIVE (NEGATIVE); Influenza B - CEPHEID Flu B NEGATIVE (NEGATIVE)
[2021-08-06 10:57] LABS: COVID-19 CEPHEID PCR (VTM/NP) Negative (Negative)
== END ==
PROVIDERS: Family Provider Internal Medicine; Visit Provider Physician Assistant
DX: J02.9 Acute pharyngitis, unspecified (principal); R05.9 Cough, unspecified
CPT/HCPCS: 0240U; 87070; 87880

== ENCOUNTER → 2023-07-09 18:31 | Outpatient (CLI) | payer OTHER, SELFPAY ==
[2020-08-20 03:53] VITALS: BMI 29.9
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
== END ==
PROVIDERS: Family Provider Internal Medicine; Referring Provider Nurse Practitioner Family; Visit Provider Nurse Practitioner Family
DX: S40.022A Contusion of left upper arm, initial encounter (principal); X58.XXXA Exposure to other specified factors, initial encounter
CPT/HCPCS: 73060

== ENCOUNTER 2024-10-12 15:32 | Emergency (ER) | payer MEDICAID, OTHER, SELFPAY ==
[2020-08-20 03:53] VITALS: BMI 29.9
[2024-10-12 15:56] VITALS: BP 123/71; PULSE 80; RESP 18; TEMP 36.4; O2SAT 100; BMI 27.4
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
[2024-10-12] MEDS: KETOROLAC 30 MG/ML VIAL IM (17:50)
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
[2024-10-12 18:56] VITALS: BP 159/92; PULSE 78; RESP 18; TEMP 36.6; O2SAT 99
== END 2024-10-12 19:04 | disposition home or self-care (01) ==
PROVIDERS: Emergency Provider Physician Assistant; Family Provider Internal Medicine
DX: S63.601A Unspecified sprain of right thumb, initial encounter (principal); S46.912A Strain of unspecified muscle, fascia and tendon at shoulder and upper arm level, left arm, initial encounter; V89.2XXA Person injured in unspecified motor-vehicle accident, traffic, initial encounter
CPT/HCPCS: 71045; 73030; 73110; 73130; 96372; 99284; J1885

== ENCOUNTER → 2024-10-24 14:24 | Outpatient (CLI) | payer OTHER, SELFPAY ==
[2020-08-20 03:53] VITALS: BMI 29.9
== END ==
PROVIDERS: Visit Provider Obstetrics & Gynecology
DX: Z11.3 Encounter for screening for infections with a predominantly sexual mode of transmission (principal)
CPT/HCPCS: 87491; 87563; 87591

== ENCOUNTER → 2024-10-27 07:47 | Outpatient (CLI) | payer OTHER, SELFPAY ==
[2020-08-20 03:53] VITALS: BMI 29.9
[2024-10-27 08:21] LABS: Add Manual Diff / Slide Review NO; Hematocrit 38.3 % (36-46); Hemoglobin 13.4 g/dL (12.0-16.0); Lymphocytes Absolute Auto 2500 /uL (1100-4500); Mean Corpuscular HGB Conc 35.1 % (30-36); Mean Corpuscular Hemoglobin 30.2 PG (26-34); Mean Corpuscular Volume 86.2 fL (80-100); Platelet Count 289 X10^3/uL (150-400)
[2024-10-27 08:37] LABS: Alanine Aminotransferase 22 IU/L (<35); Albumin 4.7 g/dL (3.5-5.0); Albumin Globulin Ratio 1.5 (1.0-2.8); Alkaline Phosphatase 65 U/L (38-126); Blood Urea Nitrogen 12 mg/dL (7-17); Calcium 9.8 mg/dL (8.4-10.2); Carbon Dioxide 26 mmol/L (22-32); Chloride 106 mmol/L (98-107); Cholesterol 191 mg/dL (140-199); Estimated Glomerular Filt Rate > 60 mL/min (>60); Globulin 3.1 g/dL (1.7-4.1); Glucose 83 mg/dL (70-99); HDL Cholesterol 34 mg/dL (40-60); HEMOLYSIS < 15 (0-50); Potassium 4.0 mmol/L (3.4-5.1); Sodium 143 mmol/L (137-145); Total Protein 7.8 g/dL (6.3-8.2); Triglycerides 199 mg/dL (35-150)
[2024-10-27 09:08] LABS: TSH w/ Reflex to FT4 1.74 uIU/mL (0.47-4.68)
== END ==
PROVIDERS: Referring Provider Obstetrics & Gynecology; Visit Provider Obstetrics & Gynecology
DX: Z01.419 Encounter for gynecological examination (general) (routine) without abnormal findings (principal)
CPT/HCPCS: 36415; 80053; 80061; 84443; 85025

== ENCOUNTER → 2025-01-18 12:24 | Outpatient (CLI) | payer OTHER, SELFPAY ==
[2020-08-20 03:53] VITALS: BMI 29.9
== END ==
PROVIDERS: PCP Family Medicine; Visit Provider Chiropractor
DX: R39.15 Urgency of urination (principal); N89.8 Other specified noninflammatory disorders of vagina
CPT/HCPCS: 87077; 87086; 87186; 87210